=== PATIENT | male | born 1995 | race Caucasian/White ===

== ENCOUNTER 2018-03-18 22:24 | Emergency (ER) | payer OTHER ==
[2018-03-19] MEDS: DICYCLOMINE 10 MG CAP PO (01:03)
[2018-03-19] MEDS: ONDANSETRON (ODT) 4 MG TAB ODT (01:03)
== END 2018-03-19 02:28 | disposition home or self-care (01) ==
LOC: FTE 22:24
DX: K52.9 Noninfective gastroenteritis and colitis, unspecified (principal)
CPT/HCPCS: 99284; Z7502

== ENCOUNTER 2019-03-27 13:51 | Emergency (ER) | payer SELFPAY, OTHER ==
[2019-03-27 15:06] LABS: ADD MAN DIFF? NO
[2019-03-27] MEDS: CEFTRIAXONE 1 GM/50 ML (PMX) 50 ML IVPB (15:06)
[2019-03-27] MEDS: SODIUM CHLORIDE 0.9% 1L BAG IV* (15:06)
[2019-03-27] MEDS: ONDANSETRON 4 MG INJ IV (15:07)
[2019-03-27] MEDS: IBUPROFEN 600 MG TAB PO (15:07)
[2019-03-27 15:12] LABS: WHITE BLOOD COUNT 12.2 10^3/ul (4.8-10.8)
[2019-03-27 15:12] LABS: BASOPHILS % 0.2 % (0.0-2.0); EOSINOPHILS # 0.1 10^3/ul (0.0-0.5); EOSINOPHILS % 0.6 % (0.0-7.0); HEMATOCRIT 47.4 % (42.0-52.0); HEMOGLOBIN 15.2 g/dl (14.0-18.0); LYMPHOCYTES # 1.8 10^3/ul (0.8-2.9); LYMPHOCYTES % 14.6 % (15.0-51.0); MEAN CORPUSCULAR HEMOGLOBIN 26.3 pg (29.0-33.0); MEAN CORPUSCULAR HGB CONC 32.1 g/dl (32.0-37.0); MEAN PLATELET VOLUME 10.8 fl (7.4-10.4); MONOCYTE # 0.9 10^3/ul (0.3-0.9); MONOCYTES % 7.1 % (0.0-11.0); NEUTROPHIL # 9.4 10^3/ul (1.6-7.5); NEUTROPHILS % 77.1 % (39.0-77.0); PLATELET COUNT 281 10^3/UL (140-415); RED BLOOD COUNT 5.78 10^6/ul (4.70-6.10); RED CELL DISTRIBUTION WIDTH 13.8 % (11.5-14.5)
[2019-03-27 15:16] LABS: ADD UMIC NO; UR ASCORBIC ACID NEGATIVE (NEGATIVE); UR BILIRUBIN (Dip) NEGATIVE (NEGATIVE); UR BLOOD (Dip) NEGATIVE (NEGATIVE); UR CLARITY CLEAR (CLEAR); UR COLOR YELLOW (YELLOW); UR GLUCOSE (Dip) NEGATIVE (NEGATIVE); UR KETONES (Dip) NEGATIVE (NEGATIVE); UR LEUKOCYTE ESTERASE (Dip) NEGATIVE Leu/ul (NEGATIVE); UR NITRITE (Dip) NEGATIVE (NEGATIVE); UR SPECIFIC GRAVITY (Dip) 1.027 (1.003-1.030); UR TOTAL PROTEIN (Dip) NEGATIVE (NEGATIVE); UR UROBILINOGEN (Dip) NEGATIVE (NEGATIVE)
[2019-03-27 15:31] LABS: LACTIC ACID 1.7 mmol/L (0.5-2.0)
[2019-03-27 15:32] LABS: ALANINE AMINOTRANSFERASE 180 IU/L (13-69); ALBUMIN 4.5 g/dl (3.3-4.9); ALBUMIN/GLOBULIN RATIO 1.32; ALKALINE PHOSPHATASE 125 IU/L (42-121); ANION GAP 9 (5-13); ASPARTATE AMINO TRANSFERASE 94 IU/L (15-46); BILIRUBIN,INDIRECT 0.6 mg/dl (0-1.1); BILIRUBIN,TOTAL 0.6 mg/dl (0.2-1.3); BLOOD UREA NITROGEN 14 mg/dl (7-20); CALCIUM 9.4 mg/dl (8.4-10.2); CARBON DIOXIDE 27 mmol/L (21-31); CHLORIDE 104 mmol/L (97-110); CREATININE 0.91 mg/dl (0.61-1.24); Estimated GFR > 60 mL/min (>60); GLUCOSE 93 mg/dl (70-220); LIPASE 75 U/L (23-300); POTASSIUM 4.1 mmol/L (3.5-5.1); SODIUM 140 mmol/L (135-144); TOTAL PROTEIN 7.9 g/dl (6.1-8.1)
[2019-03-27 15:38] LABS: PROTIME 12.3 Sec (11.9-14.9)
[2019-03-27 15:39] LABS: PARTIAL THROMBOPLASTIN TIME 28.3 Sec (23.0-35.0)
[2019-03-27 15:43] LABS: TROPONIN-I < 0.012 ng/ml (0.000-0.120)
[2019-03-27] MEDS: LORAZEPAM 0.5 MG TAB PO (18:15)
[2019-03-27 18:33] LABS: FREE T3 4.54 pg/ml (2.77-5.27)
[2019-03-27 18:33] LABS: FREE T4 (FREE THYROXINE) 1.22 ng/dl (0.79-2.35)
== END 2019-03-27 19:39 | disposition home or self-care (01) ==
LOC: E/R 13:51
DX: R00.2 Palpitations (principal); R00.0 Tachycardia, unspecified; R50.9 Fever, unspecified
CPT/HCPCS: 71045; 74176; 80053; 81003; 83605; 83690; 84439; 84443; 84481; 84484; 85025; 85610; 85730; 87040-91; 87086; 93005; 96374; 96375; 99285-25